=== PATIENT | male | born 1975 | race African-American/Black ===

== ENCOUNTER 2023-08-28 11:32 | Inpatient (IN) | payer OTHER, MEDICAID ==
[~2023-08-28] VITALS: Ht 170.2 cm; Wt 94.8 kg
[2023-08-28 11:58] LABS: BASOPHILS % 0.7 % (0.0-2.0); EOSINOPHILS % 0.6 % (0.0-5.0); HEMATOCRIT. 39.6 % (42.0-52.0); HEMOGLOBIN. 13.8 g/dL (14.0-18.0); MEAN CORPUSCULAR HGB CONC 34.9 g/dL (31.0-37.0); MEAN CORPUSCULAR VOLUME 86.1 fL (80.0-94.0); MEAN PLATELET VOLUME 10.5 fl (7.4-10.4); MONOCYTES % 5.3 % (2.0-8.0); NEUTROPHILS % 83.4 % (40.0-76.0); PLATELET 176 x1000/uL (130-400); RED CELL DISTRIBUTION WIDTH 13.5 % (11.6-14.6); WHITE BLOOD COUNT 7.2 x1000/uL (4.5-11.0)
[2023-08-28] MEDS: SODIUM CHLORIDE 0.9% 1,000 ML IV ONE ×2 (11:58→12:46)
[2023-08-28 12:15] LABS: ALANINE AMINOTRANSFERASE 10 IU/L (10-49); ALBUMIN 4.5 g/dL (3.2-4.8); ASPARTATE AMINOTRANSFERASE 14 IU/L (<34); BETA HYDROXYBUTYRATE 1.1 mMol/L (0.0-0.3); BILIRUBIN TOTAL 0.4 mg/dL (0.1-1.0); CALCIUM 9.6 mg/dL (8.7-10.4); CARBON DIOXIDE 25 mEq/L (21-32); CHLORIDE 97 mEq/L (98-107); CREATININE 1.6 mg/dL (0.6-1.3); POTASSIUM 3.8 mEq/L (3.5-5.1); PROTEIN TOTAL 7.2 g/dL (6.0-8.3); SODIUM 132 mEq/L (136-145); TROPONIN I HIGH SENSITIVITY 32 ng/L (3.0-53); UREA NITROGEN BLOOD 22 mg/dL (9-23)
[2023-08-28 12:16] LABS: BG BASE EXCESS 0.6 mmol/L (-2.0-2.0); BG DEOXYHEMOGLOBIN 1.1 % (0.0-5.0); BG FRACTION INSPIRED OXYGEN 21; BG HCO3 ACT 22.8 mmol/L (22.0-26.0); BG METHEMOGLOBIN 0.2 % (0.0-1.5); BG OXYGEN SATURATION 98.9 % (92.0-98.5); BG OXYHEMOGLOBIN 97.7 % (94.0-97.0); BG PH 7.499 (7.350-7.450); BG PO2 132.5 mmHg (75.0-100.0); BG SAMPLE SITE RIGHT RADIAL; BG TOTAL HEMOGLOBIN 14.1 g/dL (12.0-18.0); BG VENT MODE ROOM AIR
[2023-08-28 12:18] LABS: GLUCOSE 441 mg/dL (70-105)
[2023-08-28] MEDS: INSULIN REGULAR (HUMULIN R) 300UNITS/3ML VIAL IV ONE (13:08)
[2023-08-28] MEDS ORDERED: GUAIFENESIN 200MG/10ML SUGAR FREE UDC PO PRN (16:00)
[2023-08-28] MEDS ORDERED: DOCUSATE SODIUM 100MG CAPSULE PO PRN (16:00)
[2023-08-28] MEDS ORDERED: ONDANSETRON HCL 4MG/2ML INJ IV PRN (16:00)
[2023-08-28] MEDS: SODIUM CHLORIDE 0.45% 1,000 ML IV SCH (17:43)
[2023-08-28 17:55] LABS: CLARITY URINE CLEAR (CLEAR); COLOR URINE YELLOW (YELLOW); GLUCOSE URINE 3+ (NEGATIVE); KETONES URINE TRACE (NEGATIVE); LEUKOCYTE ESTERASE URINE NEGATIVE (NEGATIVE); NITRITE URINE NEGATIVE (NEGATIVE); OCCULT BLOOD URINE NEGATIVE (NEGATIVE); PH URINE 6.5 (4.5-8.0); PROTEIN URINE NEGATIVE (NEGATIVE); SPECIFIC GRAVITY URINE 1.035 (1.005-1.030)
[2023-08-28 18:11] LABS: RBC URINE 0-2 /hpf (0-2); SQUAMOUS EPITHELIAL CELL URINE RARE /lpf (RARE/1+); WBC URINE 0-2 /hpf (0-2)
[2023-08-28 18:12] LABS: BACTERIA URINE NONE SEEN
[2023-08-28 19:00] VITALS: BP 137/95; PULSE 76; RESP 18; TEMP 98
[2023-08-28 20:00] VITALS: BP 139/97; PULSE 76; RESP 18; TEMP 98
[2023-08-28] MEDS: INSULIN GLARGINE 100 UNITS/ML SUBCUT SCH (21:20)
[2023-08-29] VITALS: BP 124/80; PULSE 86; RESP 20; TEMP 97.4
[2023-08-29 04:00] VITALS: BP 137/96; PULSE 79; RESP 19; TEMP 97.5
[2023-08-29] MEDS ORDERED: INSULIN REGULAR (HUMULIN R) 300UNITS/3ML VIAL SUBCUT NR (06:00)
[2023-08-29] MEDS: INSULIN LISPRO 100 UNITS/ML SUBCUT SCH (06:43)
[2023-08-29 07:38] LABS: ALANINE AMINOTRANSFERASE < 7 IU/L (10-49); ALBUMIN 4.1 g/dL (3.2-4.8); ASPARTATE AMINOTRANSFERASE 11 IU/L (<34); BILIRUBIN TOTAL 0.4 mg/dL (0.1-1.0); CALCIUM 9.1 mg/dL (8.7-10.4); CARBON DIOXIDE 25 mEq/L (21-32); CHLORIDE 95 mEq/L (98-107); CHOLESTEROL 220 mg/dL (<200); CREATININE 1.5 mg/dL (0.6-1.3); HDL CHOLESTEROL 38 mg/dL (>55); LDL CHOLESTEROL 121 mg/dL (5-100); POTASSIUM 3.8 mEq/L (3.5-5.1); PROTEIN TOTAL 6.8 g/dL (6.0-8.3); SODIUM 130 mEq/L (136-145); TRIGLYCERIDE 356 mg/dL (0-150); UREA NITROGEN BLOOD 21 mg/dL (9-23)
[2023-08-29] MEDS: ACETAMINOPHEN 325MG TABLET PO PRN (07:55)
[2023-08-29 07:58] LABS: BASOPHILS % 0.5 % (0.0-2.0); EOSINOPHILS % 1.4 % (0.0-5.0); HEMATOCRIT. 38.1 % (42.0-52.0); HEMOGLOBIN. 12.8 g/dL (14.0-18.0); LYMPHOCYTES % 25.5 % (20.0-50.0); MEAN CORPUSCULAR HEMOGLOBIN 29.6 pg (28.0-32.0); MEAN CORPUSCULAR HGB CONC 33.5 g/dL (31.0-37.0); MEAN CORPUSCULAR VOLUME 88.2 fL (80.0-94.0); MEAN PLATELET VOLUME 11.5 fl (7.4-10.4); MONOCYTES % 7.5 % (2.0-8.0); NEUTROPHILS % 65.1 % (40.0-76.0); PLATELET 173 x1000/uL (130-400); RED BLOOD CELL COUNT 4.32 mill/uL (4.7-6.1); RED CELL DISTRIBUTION WIDTH 13.5 % (11.6-14.6); WHITE BLOOD COUNT 6.4 x1000/uL (4.5-11.0)
[2023-08-29 08:00] VITALS: BP 131/89; PULSE 94; RESP 19; TEMP 98.6
[2023-08-29 08:07] LABS: GLUCOSE 553 mg/dL (70-105)
[2023-08-29 12:00] VITALS: BP 146/86; PULSE 85; RESP 20; TEMP 98.6
[2023-08-29] MEDS: TRAMADOL 50MG TABLET PO PRN (13:05)
[2023-08-29] MEDS: AMLODIPINE 10MG TABLET PO SCH (13:05)
[2023-08-29] MEDS: LOSARTAN 50 MG TABLET PO SCH (13:05)
[2023-08-29 17:59] VITALS: BP 136/80; PULSE 86; RESP 16; TEMP 98
[2023-08-29] MEDS: ATORVASTATIN CALCIUM 40MG TABLET PO SCH (21:41)
[2023-08-29] MEDS: INSULIN GLARGINE 100 UNITS/ML SUBCUT SCH (21:52)
[2023-08-30] VITALS: BP 112/88; PULSE 81; RESP 20; TEMP 97.4
[2023-08-30 04:00] VITALS: BP 130/80; PULSE 76; RESP 19; TEMP 97.3
[2023-08-30 08:00] VITALS: BP 123/76; PULSE 80; RESP 19; TEMP 97.7
[2023-08-30] MEDS: COLCHICINE 0.6MG TABLET PO SCH (09:39)
[2023-08-30 12:00] VITALS: BP 142/87; PULSE 80; RESP 20; TEMP 97.9
[2023-08-30] MEDS: INDOMETHACIN 25MG CAPSULE PO SCH (14:00)
[2023-08-30 16:00] VITALS: BP 118/67; PULSE 87; RESP 20; TEMP 98.1
[2023-08-30] MEDS: METFORMIN HCL 500MG TABLET PO SCH (17:55)
[2023-08-30 20:00] VITALS: BP 145/100; PULSE 86; RESP 18; TEMP 98.2
[2023-08-30] MEDS ORDERED: NALOXONE HCL 0.4MG/ML VIAL IV PRN (22:30)
[2023-08-31] VITALS: BP 142/100; PULSE 86; RESP 18; TEMP 98.1
[2023-08-31 04:00] VITALS: BP 125/79; PULSE 94; RESP 18; TEMP 97.9
[2023-08-31 08:00] VITALS: BP 138/84; PULSE 92; RESP 18; TEMP 98.1
[2023-08-31 12:00] VITALS: BP 137/89; PULSE 90; RESP 18; TEMP 97.7
[2023-08-31 20:00] VITALS: BP 118/80; PULSE 85; RESP 20; TEMP 96.6
[2023-08-31] MEDS: INSULIN GLARGINE 100 UNITS/ML SUBCUT SCH (22:00)
[2023-09-01] VITALS: BP 129/79; PULSE 78; RESP 20; TEMP 97.9
[2023-09-01 04:00] VITALS: BP 122/82; PULSE 82; RESP 19; TEMP 97.8
[2023-09-01] MEDS ORDERED: INSU100I28 SQ (11:01)
[2023-09-01] MEDS ORDERED: LOSA50TA41 MT (11:01)
[2023-09-01] MEDS ORDERED: AMLO10TA80 MT (11:01)
[2023-09-01] MEDS ORDERED: METF-874 PO (11:01)
[2023-09-01] MEDS ORDERED: ATOR40TA70 MT (11:01)
[2023-09-01 16:31] VITALS: BP 130/87; PULSE 87; TEMP 98.5; O2SAT 98
== END 2023-09-01 18:36 | disposition home or self-care (01) | DRG 638 ==
LOC: ER 11:32 → EDBEDREQTM 14:19 → EDBEDREQ 14:19 → EDBEDREQSVC 17:36 → 6EST 20:08
PROVIDERS: ADMIT Hospitalist; ATTEND Hospitalist
DX: E11.65 Type 2 diabetes mellitus with hyperglycemia (principal); N17.9 Acute kidney failure, unspecified; M10.9 Gout, unspecified; I16.0 Hypertensive urgency; Z79.4 Long term (current) use of insulin; Z79.84 Long term (current) use of oral hypoglycemic drugs
CPT/HCPCS: 36415; 36600; 71045; 80053; 80061; 81003; 82010; 82375; 82805; 82962; 83036; 84484; 84550; 85025; 93005; 99285; J1815; J7030